=== PATIENT | female | born 1945 | race Hispanic/Latino ===

== ENCOUNTER 2018-01-02 12:28 | Emergency (ER) | payer MEDICARE ==
[~2018-01-02] VITALS: Ht 142.2 cm; Wt 165.1 kg
[2018-01-02] MEDS ORDERED: IBUPROFEN 200 MG TAB PO STA (12:31)
[2018-01-02] MEDS ORDERED: TETANUS/DIPHTHERIA TOX ADULT 0.5 ML SYR IM STA (12:31)
[2018-01-02] MEDS ORDERED: ONDANSETRON HCL 4 MG ORAL DISINTEGRATING TAB PO ONE (12:45)
[2018-01-02] MEDS ORDERED: HYDROCODONE/APAP 5MG-325MG TAB PO ONE (12:45)
[2018-01-02 14:05] LABS: BASOPHILS % 0.5 % (0.0-1.0); EOSINOPHILS # (AUTO) 0.2 (0.0-0.4); EOSINOPHILS % 3.8 % (0.0-6.0); HEMOGLOBIN 12.2 g/dL (12.0-16.0); LYMPHOCYTES # (AUTO) 0.8 (1.0-3.2); LYMPHOCYTES % 12.8 % (18.0-39.1); MEAN CORPUSCULAR HEMOGLOBIN 28.2 pg (28-32); MEAN CORPUSCULAR VOLUME 85.5 fL (81-99); MONOCYTES # (AUTO) 0.8 (0.2-0.8); MONOCYTES % 11.8 % (4.4-11.3); NEUTROPHILS # (AUTO) 4.5 (2.1-6.9); NEUTROPHILS % 70.8 % (38.7-80.0); PLATELET COUNT 227 x10e3/uL (140-360); RED BLOOD COUNT 4.33 x10e6/uL (3.6-5.1); RED CELL DISTRIBUTION WIDTH 13.8 % (11.7-14.4)
[2018-01-02 14:07] LABS: INR 0.89; PARTIAL THROMBOPLASTIN TIME 27.7 seconds (23.8-35.5); PROTHROMBIN TIME 12.9 seconds (11.9-14.5)
[2018-01-02 14:17] LABS: ANION GAP 14.7 mmol/L (8-16); CALCIUM 9.4 mg/dL (8.4-10.2); CREATININE, SERUM 0.98 mg/dL (0.57-1.11); POTASSIUM 3.7 mmol/L (3.5-5.1)
--- NOTE | 2018-01-02 15:34 | Diagnostic Imaging Report ---
EXAMINATION: CT of the abdomen and pelvis with contrast. TECHNIQUE: Spiral CT images of the abdomen and pelvis were performed from the lung bases to the lesser trochanters after the intravenous administration of 100 cc Isovue-370. Coronal and sagittal reformatted images were obtained. COMPARISON: None. CLINICAL HISTORY:Fall, abrasion to left hip and lower back. Left lower back pain DISCUSSION: Evaluation is limited secondary to beam hardening artifact related to multiple patient contact points with the scanning gantry due to body habitus ABDOMEN/PELVIS: LOWER THORAX:Unremarkable. HEPATOBILIARY: Subcentimeter hypoattenuating lesion in segment 5, too small to further characterize though likely to represent a small cyst. Surgical clips in the gallbladder fossa. No intra-or extrahepatic biliary ductal dilation. SPLEEN: No splenomegaly. PANCREAS: No focal masses or ductal dilatation. ADRENALS: No adrenal nodules. KIDNEYS/URETERS: No hydronephrosis, calculi, or gross mass lesion. PELVIC ORGANS/BLADDER: Urinary bladder is unremarkable. The uterus is not identified and has presumably been removed. No adnexal mass. PERITONEUM/RETROPERITONEUM: No ascites. No pneumoperitoneum. LYMPH NODES: No pelvic sidewall, retroperitoneal, or mesenteric lymphadenopathy. VESSELS: Abdominal aorta, major branch vessels, and iliac arterial systems are patent with atherosclerotic calcification. Retroaortic left renal vein. Portal vein, splenic vein, and central superior mesenteric vein are patent. GI TRACT: The large bowel is notable for multiple diverticula along the course of the sigmoid colon, without findings of diverticulitis. The majority of the transverse colon lies within a large ventral hernia sac. The appendix is not definitively identified. No right lower quadrant inflammation. The stomach is collapsed with prominence of the rugal folds. There is no small bowel dilatation to suggest obstruction. Several loops of small bowel lie within a large midline ventral hernia sac. BONES AND SOFT TISSUE: Recurrent midline ventral hernia with a defect measuring approximately 10 cm in transverse dimension. Radiopaque foci related to prior mesh-repair are noted along the superior margin of the hernia. The sac contains loops of small and large bowel without evidence of obstruction or inflammatory change. Otherwise no focal soft tissue abnormalities. No acute fractures. No osseous destructive lesions. IMPRESSION: No acute traumatic intra-abdominal or pelvic CT abnormalities. Recurrent large midline ventral abdominal wall hernia contains segments of small and large bowel without evidence of obstruction or inflammatory change. Sigmoid diverticulosis without findings of diverticulitis. Signed by: Dr. Chente Keith M.D. on 01/02/2018 3:31 PM
--- NOTE | 2018-01-02 15:52 | Diagnostic Imaging Report ---
Radiographs of the left knee - 3 views HISTORY: Pain COMPARISON: None available. FINDINGS: Bones: No acute displaced fracture. Osseous alignment is within normal limits. Joints: Advanced tricompartmental degenerative arthrosis. Soft tissues: Soft tissue swelling and suprapatellar effusion. IMPRESSION: Advanced tricompartmental degenerative arthrosis. Soft tissue swelling and suprapatellar effusion. Signed by: Dr. Ector Kim M.D. on 01/02/2018 3:49 PM
--- NOTE | 2018-01-02 15:54 | Diagnostic Imaging Report ---
Radiographs of the left hip and pelvis - 3 views HISTORY: Pain COMPARISON: None available. FINDINGS: Bones: No acute displaced fracture. Osseous alignment is within normal limits. Joints: Scattered degenerative change. No osseous erosion. Soft tissues: The soft tissues appear unremarkable. IMPRESSION: Scattered degenerative change. No osseous erosion. Signed by: Dr. Ector Kim M.D. on 01/02/2018 3:51 PM
[2018-01-02] MEDS ORDERED: SODIUM CHLORIDE 0.9% 50ML 50 ML ONE (16:23)
[2018-01-02] MEDS ORDERED: IOPAMIDOL 370 MG/ML 200 ML INFUS..BTL INJ ONE (16:23)
[2018-01-02] MEDS ORDERED: MUPIROCIN 2% OINT 22 GM TUBE TOP SCH (17:00)
[2018-01-02 18:18] VITALS: BP 144/75
== END 2018-01-02 17:55 | disposition home or self-care (01) ==
LOC: ER 12:28
DX: M54.5 Low back pain (principal); S33.5XXA Sprain of ligaments of lumbar spine, initial encounter; S30.810A Abrasion of lower back and pelvis, initial encounter; M25.552 Pain in left hip; M25.562 Pain in left knee; W07.XXXA Fall from chair, initial encounter; I10 Essential (primary) hypertension; E78.5 Hyperlipidemia, unspecified; E07.9 Disorder of thyroid, unspecified; E66.9 Obesity, unspecified
CPT/HCPCS: 36415; 73502; 73562; 74177; 80048; 85025; 85610; 85730; 90471; 90714; 99284; Q0162; Q9967

== ENCOUNTER → 2020-06-06 | Outpatient (CLI) | payer MEDICARE | LOC: RAD 13:29 | PROVIDERS: ATTEND Internal Medicine | DX: R60.9 Edema, unspecified (principal) | CPT/HCPCS: 93970 ==

== ENCOUNTER → 2020-09-22 | Outpatient (CLI) | payer MEDICARE | LOC: US 10:23 | PROVIDERS: ATTEND Urology | DX: N39.0 Urinary tract infection, site not specified (principal) | CPT/HCPCS: 76770; 76857 ==